=== PATIENT | male | born 1970 | race Caucasian/White ===

== ENCOUNTER 2023-09-17 17:20 | Emergency (ER) | payer SELFPAY ==
[~2023-09-17] VITALS: Ht 185.4 cm; Wt 95.4 kg
[2023-09-17] MEDS ORDERED: HYDROcodone/acetaminophen 10/325mg tab PO ONE (17:35)
[2023-09-17] MEDS ORDERED: TETRACAINE 0.5% 4 ML OPHTHALMIC DROPS EACHEYE ONE (17:50)
[2023-09-17 18:30] VITALS: BP 132/78; PULSE 78; RESP 18; TEMP 98.7; O2SAT 97
== END 2023-09-17 18:31 | disposition home or self-care (01) ==
LOC: ER 17:21
DX: T26.02XA Burn of left eyelid and periocular area, initial encounter (principal); T20.16XA Burn of first degree of forehead and cheek, initial encounter; T20.14XA Burn of first degree of nose (septum), initial encounter; X08.8XXA Exposure to other specified smoke, fire and flames, initial encounter; Y93.89 Activity, other specified; Y92.89 Other specified places as the place of occurrence of the external cause; Y99.8 Other external cause status
CPT/HCPCS: 99283; J7120; 96365; 99284